=== PATIENT | female | born 1960 | race Two or more races ===

== ENCOUNTER 2018-08-31 17:20 | Emergency (ER) | payer MEDICAID ==
[~2018-08-31] VITALS: Ht 152.4 cm; Wt 68.2 kg
[~2018-08-31 17:20] MED LIST: UNK HTN MEDS
[2018-08-31] MEDS ORDERED: BENA1TAB13 PO (17:45)
[2018-08-31] MEDS ORDERED: METF500T24 PO (17:45)
[2018-08-31] MEDS ORDERED: CHOL200056 PO (17:46)
[2018-08-31] MEDS ORDERED: MECLIZINE 12.5 MG TAB PO ONE (18:00)
[2018-08-31 18:06] VITALS: Ht 152.4 cm; Wt 68.2 kg
[2018-08-31] MEDS ORDERED: MECL-77 PO (18:33)
--- NOTE | 2018-08-31 18:52 | ERD ---
ER Documentation Chief Complaint Chief Complaint DIZZINESS WITH NAUSEA X 2 HOURS HPI Patient is a 58-year-old female with hypertension and diabetes who presents with dizziness. Please note a video spanish medical interpreter was used for the entire history and physical exam. The patient was brought in by ambulance. She came from home. She started with dizziness 2 hours ago and she feels like the room is spinning. She has no vomiting or nausea. She had no headache. She has had no treatment as of yet. She has had this before but has never lasted this long. Upon review of old medical records this is the patient's third visit to the ER since 2011. She does not remember the name of her primary doctor. ROS All systems reviewed and are negative except as per history of present illness. Medications Home Meds Active Scripts Meclizine Hcl* (Meclizine Hcl*) 25 Mg Tablet, 25 MG PO Q8H PRN for DIZZINESS, #12 TAB Prov:CRISTIANA CONN MD 08/31/18 Reported Medications Cholecalciferol (Vitamin D3) (Vitamin D-3) 2,000 Unit Tablet, 2000 UNIT PO DAILY, TAB 08/31/18 Benazepril-Hydrochlorothiazide (Benazepril-Hydrochlorothiazide) 20-12.5 Mg Tablet, 1 TAB PO DAILY, #30 TAB 08/31/18 Metformin Hcl* (Metformin Hcl*) 500 Mg Tablet, 250 MG PO WITH BREAKFAST, #30 TAB 08/31/18 Discontinued Reported Medications [Unk Htn Meds] No Conflict Check 01/05/12 Allergies Allergies: Coded Allergies: Penicillins (Verified Allergy, Mild, RASH, 08/31/18) PMhx/Soc History of Surgery: No Anesthesia Reaction: No Hx Neurological Disorder: No Hx Respiratory Disorders: No Hx Cardiac Disorders: Yes (HTN) Hx Psychiatric Problems: No Hx Miscellaneous Medical Probl: No Hx Alcohol Use: No Hx Substance Use: No Hx Tobacco Use: No Smoking Status: Never smoker FmHx Family History: diabetes Physical Exam Vitals Vital Signs Date Temp Pulse Resp B/P (MAP) Pulse Ox O2 O2 Flow FiO2 Time Delivery Rate 08/31/18 98.1 76 18 151/82 98 18:06 (105) 08/31/18 98.1 76 18 151/82 98 17:32 (105) Physical Exam Const: Mild distress Head: Atraumatic Eyes: Normal Conjunctiva ENT: Normal External Ears, Nose and Mouth. Neck: Full range of motion. No meningismus. Resp: Clear to auscultation bilaterally Cardio: Regular rate and rhythm, no murmurs Abd: Soft, non tender, non distended. Normal bowel sounds Skin: No petechiae or rashes Back: No midline or flank tenderness Ext: No cyanosis, or edema Neur: Awake and alert, cranial nerves II through XII intact, strength is 5 out of 5 in all 4 extremities, no slurred speech Psych: Normal Mood and Affect Results 24 hrs Laboratory Tests Test 08/31/18 17:32 Bedside Glucose 166 mg/dL Current Medications Medications Dose Sig/Jessica Start Time Status Last (Trade) Ordered Route PRN Stop Time Admin Dose Reason Admin Meclizine 25 mg ONCE ONCE 08/31/18 DC 08/31/18 HCl PO 18:00 18:09 (Antivert) 08/31/18 18:01 Procedures/MDM Patient is a 58-year-old female with hypertension and diabetes who presents with dizziness. Her symptoms are consistent with vertigo. There is no weakness or facial droop. There is no slurred speech. At this point I doubt intracranial hemorrhage, mass, or stroke. I believe the risk of doing a CT scan of the brain outweigh the benefits. The patient was given meclizine. She will be given a prescription for meclizine as well. She should follow-up with her primary doctor within 24-48 hours. She can return sooner for any worsening symptoms. Departure Diagnosis: Primary Impression: Vertigo Additional Impression: Dizziness Condition: Fair Patient Instructions: Dizziness, Unk Cause, Vertigo, Unspecified Referrals: Your doctor Additional Instructions: Llame al doctor ROXI y gi sandi LILLIAN PARA DENTRO DE 1-2 PITTS.Dgale a la secretaria que nosotros le instruimos hacer esta lillian.Avise o llame si jamison condicin se empeora antes de la lillian. Regresa aqui si peor o no mejor. CRISTIANA CONN MD Aug 31, 2018 18:52
[2018-08-31] MEDS ORDERED: ONDANSETRON (ODT) 4 MG TAB ODT STA (19:54)
[2018-08-31 20:11] VITALS: BP 134/74; PULSE 88; RESP 18
== END 2018-08-31 20:14 | disposition home or self-care (01) ==
LOC: E/R 17:20
DX: R42 Dizziness and giddiness (principal); I10 Essential (primary) hypertension; E11.9 Type 2 diabetes mellitus without complications; R11.0 Nausea; Z79.82 Long term (current) use of aspirin
CPT/HCPCS: 82962; Z7502; Z7610; 99283